=== PATIENT | female | born 1950 | race Caucasian/White ===

== ENCOUNTER 2017-02-11 17:04 | Emergency (ER) | payer OTHER ==
[~2017-02-11] VITALS: Ht 162.6 cm; Wt 77.1 kg
[2017-02-11] MEDS ORDERED: LANS30CA60 PO (17:56)
[2017-02-11] MEDS ORDERED: METO1TAB18 PO (17:56)
[2017-02-11] MEDS ORDERED: AMLO5TAB4 PO (17:56)
[2017-02-11] MEDS ORDERED: LEVO88TA2 PO (17:56)
[2017-02-11] MEDS ORDERED: HYDR12.547 PO (17:56)
[2017-02-11 19:03] VITALS: BP 133/83
[2017-02-11 19:05] LABS: HEMATOCRIT 41.9 % (34.6-47.8); WHITE BLOOD COUNT 9.4 x10^3/uL (3.4-10)
[2017-02-11 19:18] LABS: BLOOD UREA NITROGEN 18 mg/dL (7-18)
[2017-02-11 19:32] LABS: ASPARTATE AMINO TRANSFERASE 15 U/L (15-37)
[2017-02-11] MEDS ORDERED: RIVAROXABAN 15 MG TABLET PO ONE (19:45)
== END 2017-02-11 20:37 | disposition home or self-care (01) ==
LOC: ED 19:50
DX: I82.431 Acute embolism and thrombosis of right popliteal vein (principal); I82.441 Acute embolism and thrombosis of right tibial vein; E03.9 Hypothyroidism, unspecified; E78.00 Pure hypercholesterolemia, unspecified; I10 Essential (primary) hypertension; W01.0XXA Fall on same level from slipping, tripping and stumbling without subsequent striking against object, initial encounter; Y93.89 Activity, other specified; Y92.89 Other specified places as the place of occurrence of the external cause; Y99.8 Other external cause status
CPT/HCPCS: 36415; 80053; 85025; 85610; 85730; 99285